=== PATIENT | male | born 1990 | race Hispanic/Latino ===

== ENCOUNTER 2021-03-22 04:48 | Emergency (ER) | payer SELFPAY ==
[2021-03-22] MEDS ORDERED: LIDOCAINE 1% W/EPI 1:100,000 MDV 20 ML VIAL ONE (05:32)
[2021-03-22] MEDS ORDERED: TETANUS & DIPHTHERIA TOX,ADULT 0.5 ML VIAL ONE (06:03)
--- NOTE | 2021-03-22 06:56 | ER ---
Nurse's Notes [facility] Name: Roberto Lema Age: 30 yrs Sex: Male : 1990 Arrival Date: 03/22/2021 Time: 04:48 Bed 4 Private MD: Diagnosis: Arm Laceration Right/Open wound forearm Presentation: 03/22 05:04 Chief complaint: Patient states: Reports he ran into a glass door about an hour ago, ea cut his right arm. Coronavirus screen: At this time, the client does not indicate any symptoms associated with coronavirus-19. Ebola Screen: No symptoms or risks identified at this time. Complicating Factors: There are no complicating factors for this patient. Initial Sepsis Screen: Does the patient meet any 2 criteria? No. Patient's initial sepsis screen is negative. Does the patient have a suspected source of infection? No. Patient's initial sepsis screen is negative. Risk Assessment: Do you want to hurt yourself or someone else? Patient reports no desire to harm self or others. Onset of symptoms was March 22, 2021. 05:04 Method Of Arrival: Ambulatory ea 05:04 Acuity: LUCIANO 3 ea Historical: - Allergies: 05:06 No Known Allergies; ea - Home Meds: 05:06 None [Active]; ea - PMHx: 05:06 None; ea - PSHx: 05:06 None; ea - Immunization history:: Adult Immunizations unknown. - Family history:: not pertinent. - Social history:: Smoking status: Patient denies any tobacco usage or history of. - Hospitalizations: : No recent hospitalization is reported. Screenin:04 Abuse screen: Denies threats or abuse. Nutritional screening: No deficits noted. ea Tuberculosis screening: No symptoms or risk factors identified. Fall Risk None identified. Assessment: 05:14 General: Appears in no apparent distress. Behavior is appropriate for age. Pain: ea Complains of pain in right arm. Neuro: Level of Consciousness is awake, alert, obeys commands, Oriented to person, place, time. Cardiovascular: Patient's skin is warm and dry. Respiratory: Airway is patent Respiratory effort is even, unlabored, Respiratory pattern is regular, symmetrical. Derm: Skin is pink, warm \T\ dry. Musculoskeletal: Circulation, motion, and sensation intact. Injury Description: Laceration sustained to dorsal aspect of right forearm is jagged, 2.6 to 7.5 cm long, bleeding moderately, was sustained 30-60 minutes ago. is bleeding moderately. 07:22 Reassessment: Patient appears in no apparent distress at this time. Patient and/or sv family updated on plan of care and expected duration. Pain level reassessed. Patient is alert, oriented x 3, equal unlabored respirations, skin warm/dry/pink. Patient states symptoms have improved. Vital Signs: 05:04 BP 139 / 73; Pulse 60; Resp 18; Temp 97.6; Pulse Ox 99% on R/A; ea ED Course: 04:48 Patient arrived in ED. bp1 04:58 Cory Kaur MD is Attending Physician. rn 05:04 Tonya Chaparro RN is Primary Nurse. ea 05:04 Patient has correct armband on for positive identification. Bed in low position. Call ea light in reach. 05:05 Triage completed. ea 05:07 Arm band placed on right wrist. ea 05:15 No provider procedures requiring assistance completed. ea 05:40 Forearm Right Sent. [id number] 06:36 Forearm Right In Process Unspecified. EDMS 06:36 XRAY Forearm RIGHT In Process Unspecified. EDMS 06:55 Gilberto Phoenix MD is Referral Physician. rn 07:20 Assist provider with laceration repair on dorsal aspect of right forearm and palmar sv aspect of right forearm that was between 2.6 to 7.5 cm using harleen. Performed by Cory Kaur MD Dressed with Alexis, Neosporin, non-adherent gauze. 07:21 Patient did not have IV access during this emergency room visit. 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 Exp: ea 02/10/2023. Lot #: [id number]. } Route: IM; Site: left deltoid; 06:57 Follow up: Response: No adverse reaction bs2 06:57 Drug: [place] (HYDROcodone-acetaminophen) 10 mg-325 mg 1 tabs Route: PO; bs2 06:57 Drug: Clindamycin 300 mg Route: PO; bs2 Outcome: 06:56 Discharge ordered by . rn 07:16 Discharged to home ambulatory. tr6 07:16 Condition: stable 07:16 Discharge instructions given to patient. 07:22 Discharge instructions given to patient, Instructed on discharge instructions, follow sv up and referral plans. medication usage, wound care, Demonstrated understanding of instructions, follow-up care, medications, wound care, Prescriptions given X 2. 07:22 Patient left the ED. sv Signatures: Dispatcher [employer] Marbella Cobb RN RN sv Nieto, Roman, MD MD rn Antunez, Elena, RN RN ea Paniauga, Brittany bp1 Malcaba, Joseph RN RN [id number] Genna Myers RN RN tr6 Erika Stephenson bs2
--- NOTE | 2021-03-22 06:57 | EDPHYS ---
Physician Documentation [facility] Name: Roberto Lema Age: 30 yrs Sex: Male : 1990 Arrival Date: 03/22/2021 Time: 04:48 Bed 4 Private MD: ED Physician Cory Kaur HPI: 03/22 05:03 This 30 yrs old Male presents to ER via Unassigned with complaints of Laceration To Arm.rn 05:03 The patient has a laceration related to: falling occurred at an unknown location, and rn has glass or an other foreign body present. The laceration(s) is(are) located on the right arm. Onset: The symptoms/episode began/occurred 1 hour(s) ago. Associated signs and symptoms: Pertinent negatives: heavy bleeding, loss of consciousness, suspected foreign body. The patient has not experienced similar symptoms in the past. The patient has not recently seen a physician. Reports falling, fell into glass door, door broke and piece of glass cut right arm. Mild bleeding, not on blood thinner. No other injury. Does not feel like there is glass in arm. . Historical: - Allergies: 05:06 No Known Allergies; ea - Home Meds: 05:06 None [Active]; ea - PMHx: 05:06 None; ea - PSHx: 05:06 None; ea - Immunization history:: Adult Immunizations unknown. - Family history:: not pertinent. - Social history:: Smoking status: Patient denies any tobacco usage or history of. - Hospitalizations: : No recent hospitalization is reported. ROS: 05:03 Constitutional: Negative for fever, chills, and weight loss, Eyes: Negative for injury, rn pain, redness, and discharge, Neck: Negative for injury, pain, and swelling, Cardiovascular: Negative for chest pain, palpitations, and edema, Respiratory: Negative for shortness of breath, cough, wheezing, and pleuritic chest pain, Abdomen/GI: Negative for abdominal pain, nausea, vomiting, diarrhea, and constipation, Back: Negative for injury and pain, MS/Extremity: + laceration to right forearm Skin: + laceration to right forearm Neuro: Negative for headache, weakness, numbness, tingling, and seizure. Exam: 05:03 Constitutional: This is a well developed, well nourished patient who is awake, alert, rn and in no acute distress. Head/Face: Normocephalic, atraumatic. Cardiovascular: Regular rate and rhythm. No pulse deficits. Respiratory: No increased work of breathing, no retractions or nasal flaring. Skin: Approx 10 cm linear laceration to right forearm, volar side, venous bleeding noted, multiple glass foreign bodies. Approx 4 cm linear laceration to right forearm proximal and parallel to larger laceration. 2 skin avulsions approx 1 cm each, chevron lacerations mid forearm, radial side, with a few small pieces of glass in wounds. MS/ Extremity: Pulses equal, no cyanosis. Neurovascular intact. Full, normal range of motion. Equal circumference. Neuro: Awake and alert, GCS 15, oriented to person, place, time, and situation. Motor strength 5/5 in all extremities. Sensory grossly intact. Vital Signs: 05:04 BP 139 / 73; Pulse 60; Resp 18; Temp 97.6; Pulse Ox 99% on R/A; ea Laceration: 06:50 Wound Repair of 10cm ( 3.9in ) subcutaneous laceration to right distal forearm. Distal rn neuro/vascular/tendon intact. Anesthesia: Wound infiltrated with 3 mls of 1% lidocaine w/ Epi. Wound prep: Extensive cleansing by me, Wound irrigation by me, Particulate matter removal of glass, Copious irrigation. Skin closed with 5 1-0 Jodie using staple gun. Dressed with Kerlix. Patient tolerated well. 06:50 Wound Repair of 4cm ( 1.6in ) subcutaneous laceration to proximal left forearm. Distal rn neuro/vascular/tendon intact. Anesthesia: Wound infiltrated with 2 mls of 1% lidocaine w/ Epi. Wound prep: Extensive cleansing by me, Wound irrigation by me, Particulate matter removal of glass by me, Wound explored extensively, Copious irrigation. Skin closed with 2 1-0 Jodie using staple gun. Dressed with Kerlix. Patient tolerated well. 06:50 Wound Repair of 1cm ( 0.4in ) subcutaneous laceration to dorsal aspect of right rn forearm. Distal neuro/vascular/tendon intact. Anesthesia: Wound infiltrated with 1 mls of 1% lidocaine w/ Epi. Wound prep: Extensive cleansing by me, Wound irrigation by nurse by me, Particulate matter removal of glass by me, Wound explored extensively, Copious irrigation. Skin closed with 1 1-0 [place] using staple gun. Dressed with Kerlix. Patient tolerated well. 06:50 Wound Repair of 1.5cm ( 0.6in ) subcutaneous laceration to dorsal aspect of right rn forearm. Distal neuro/vascular/tendon intact. Anesthesia: Wound infiltrated with 1 mls of 1% lidocaine w/ Epi. Wound prep: Extensive cleansing by nurse by me, Wound irrigation by nurse by me, Particulate matter removal of glass, Copious irrigation. Skin closed with 1 1-0 [place] using staple gun. Dressed with Kerlix. Patient tolerated well. MDM: 04:58 Patient medically screened. rn 06:50 Differential diagnosis: superficial laceration, tendon injury. Data reviewed: vital rn signs, nurses notes, radiologic studies, plain films, and as a result, I will discharge patient. Counseling: I had a detailed discussion with the patient and/or guardian regarding: the historical points, exam findings, and any diagnostic results supporting the discharge/admit diagnosis, radiology results, the need for outpatient follow up, to return to the emergency department if symptoms worsen or persist or if there are any questions or concerns that arise at home. Response to treatment: the patient's symptoms have markedly improved after treatment, and as a result, I will discharge patient. Special discussion: I discussed with the patient/guardian in detail that at this point there is no indication for admission to the hospital. It is understood, however, that if the symptoms persist or worsen the patient needs to return immediately for re-evaluation. Based on the history and exam findings, there is no indication for further emergent testing or inpatient evaluation. I discussed with the patient/guardian the need to see the hand specialist for further evaluation of the symptoms. ED course: Pt with full NV intact before and after closure of wound, numerous pieces of glass removed, u/s used actively to find glass, after irrigation and extensive exploration with tourniquet, no more glass identified, pt content and began to complain of pain and discomfort, joint decision made to stop looking given nothing obvious on ultrasound evaluation and direct visualization, wounds closed with jodie. Will cover with abx given extent of exploration. urged to f/u with hand surgery given possible tendon injury/injuries given deep wounds of forearm. . 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 Exp: ea 02/10/2023. Lot #: [id number]. } Route: IM; Site: left deltoid; 06:57 Follow up: Response: No adverse reaction bs2 06:57 Drug: [place] (HYDROcodone-acetaminophen) 10 mg-325 mg 1 tabs Route: PO; bs2 06:57 Drug: Clindamycin 300 mg Route: PO; bs2 Disposition: 07:21 PA/AUTHORIZATION REP's history reviewed, patient interviewed, and examined. rn Disposition Summary: 03/22/21 06:56 Discharge Ordered Location: Home rn Problem: new rn Symptoms: have improved rn Condition: Stable rn Diagnosis - Arm Laceration Right/Open wound forearm rn Followup: rn - With: Gilberto Phoenix MD - When: 5 - 6 days - Reason: Recheck today's complaints, Re-evaluation by your physician Followup: rn - With: Emergency Department - When: 14 days - Reason: Wound Recheck, Recheck today's complaints, Staple/Suture removal, Re-evaluation by your physician Discharge Instructions: - Discharge Summary Sheet rn - Laceration Care, Adult rn - Sutured internal auditor - Foreign Body rn Forms: - Medication Reconciliation Form rn - Thank You Letter rn - Antibiotic environmental intern - Prescription Opioid Use rn Prescriptions: - Clindamycin HCl 300 mg Oral Capsule - take 1 capsule by ORAL route every 6 hours for 10 days; 40 capsule; Refills: 0, rn Product Selection Permitted - Tramadol 50 mg Oral Tablet - take 1 tablet by ORAL route every 8 hours as needed; 15 tablet; Refills: 0, rn Product Selection Permitted Signatures: Dispatcher [employer] Cory Pelaez MD MD rn Antunez Tonya, RN RN Alfonso Rios, RN RN jm8 Erika Stephenson bs2 Corrections: (The following items were deleted from the chart) 05:13 05:03 Constitutional: This is a well developed, well nourished patient who is awake, rn alert, and in no acute distress. Head/Face: Normocephalic, atraumatic. Cardiovascular: Regular rate and rhythm. No pulse deficits. Respiratory: No increased work of breathing, no retractions or nasal flaring. Skin: Approx 10 cm linear laceration to right forearm, volar side, venous bleeding noted, no foreign body noted. MS/ Extremity: Pulses equal, no cyanosis. Neurovascular intact. Full, normal range of motion. Equal circumference. Neuro: Awake and alert, GCS 15, oriented to person, place, time, and situation. Motor strength 5/5 in all extremities. Sensory grossly intact. rn 06:20 05:03 Constitutional: This is a well developed, well nourished patient who is awake, rn alert, and in no acute distress. Head/Face: Normocephalic, atraumatic. Cardiovascular: Regular rate and rhythm. No pulse deficits. Respiratory: No increased work of breathing, no retractions or nasal flaring. Skin: Approx 10 cm linear laceration to right forearm, volar side, venous bleeding noted, multiple glass foreign bodies MS/ Extremity: Pulses equal, no cyanosis. Neurovascular intact. Full, normal range of motion. Equal circumference. Neuro: Awake and alert, GCS 15, oriented to person, place, time, and situation. Motor strength 5/5 in all extremities. Sensory grossly intact. rn 06:36 06:10 Forearm Right+[email or web address] ordered. EDMS EDMS
[2021-03-22] MEDS ORDERED: HYDROCODONE/APAP 10/325 TAB ONE (07:13)
[2021-03-22 07:26] VITALS: BP 139/73; TEMP 97.6; O2SAT 99
--- NOTE | 2021-03-22 08:39 | RAD REPORT ---
EXAM DESCRIPTION: RAD - Forearm Right - 03/22/2021 6:36 am CLINICAL HISTORY: ro foreign body Pain and swelling COMPARISON: No comparisons FINDINGS: Soft tissue laceration is seen along the palmar forearm. Small radiopaque foreign bodies a re present. No fracture.
--- NOTE | 2021-03-22 08:57 | RAD REPORT ---
EXAM DESCRIPTION: RAD - Forearm Right - 03/22/2021 6:36 am CLINICAL HISTORY: s/p irrigation and foreign body removal Pain and swelling. COMPARISON: Forearm Right dated 03/22/2021 FINDINGS: Laceration is noted soft tissues of the dorsal forearm. Several small radiopaque foreign b odies persist. No fracture.
== END 2021-03-22 07:22 | disposition home or self-care (01) ==
LOC: ER 04:48
PROC: 0JQH0ZZ Repair Left Lower Arm Subcutaneous Tissue and Fascia, Open Approach (ICD-10-PCS; principal; 2021-03-22)
PROC: 0JQG0ZZ Repair Right Lower Arm Subcutaneous Tissue and Fascia, Open Approach (ICD-10-PCS; 2021-03-22)
DX: S51.822A Laceration with foreign body of left forearm, initial encounter (principal); S51.821A Laceration with foreign body of right forearm, initial encounter; W19.XXXA Unspecified fall, initial encounter; Z23 Encounter for immunization
CPT/HCPCS: 90471; 90714; 99284